=== PATIENT | male | born 1995 | race Two or more races ===

== ENCOUNTER 2021-10-07 13:15 | Emergency (ER) | payer SELFPAY ==
[~2021-10-07] VITALS: Ht 185.4 cm; Wt 104.3 kg
[2021-10-07 15:00] VITALS: BP 150/81
== END 2021-10-07 15:21 | disposition home or self-care (01) ==
LOC: ER 13:15
DX: S61.210A Laceration without foreign body of right index finger without damage to nail, initial encounter (principal); W25.XXXA Contact with sharp glass, initial encounter; Y93.89 Activity, other specified; Y92.89 Other specified places as the place of occurrence of the external cause; Y99.8 Other external cause status
CPT/HCPCS: 12002; 99283; J2001

== ENCOUNTER 2021-10-16 09:01 | Emergency (ER) | payer SELFPAY ==
[~2021-10-16] VITALS: Ht 185.4 cm; Wt 104.3 kg
[2021-10-16 09:40] VITALS: BP 136/86
== END 2021-10-16 10:02 | disposition home or self-care (01) ==
LOC: ER 09:01
DX: S61.210D Laceration without foreign body of right index finger without damage to nail, subsequent encounter (principal); Z88.0 Allergy status to penicillin; X58.XXXD Exposure to other specified factors, subsequent encounter